=== PATIENT | male | born 1995 | race Hispanic/Latino ===

== ENCOUNTER 2024-09-22 13:40 | Emergency (ER) | payer SELFPAY ==
[~2024-09-22] VITALS: Ht 162.6 cm; Wt 90.7 kg
[2024-09-22 14:05] VITALS: PULSE 70; RESP 16; TEMP 98.6; O2SAT 99
[2024-09-22] MEDS: ACETAMINOPHEN 325 MG TAB PO ONE (15:59)
== END 2024-09-22 16:00 | disposition home or self-care (01) ==
LOC: FSED 13:55
DX: M25.531 Pain in right wrist (principal); W01.0XXA Fall on same level from slipping, tripping and stumbling without subsequent striking against object, initial encounter; Y93.01 Activity, walking, marching and hiking; Y92.89 Other specified places as the place of occurrence of the external cause
CPT/HCPCS: 99283